=== PATIENT | male | born 1975 | race Asian ===

== ENCOUNTER 2023-05-19 13:41 | Emergency (ER) | payer SELFPAY ==
[2023-05-19] MEDS ORDERED: Iopamidol 612 MG/ML 100 ML Bottle IVPUSH ONE (13:49)
[2023-05-19 14:01] LABS: BASOPHILS PERCENT AUTO 0.8 % (0.2-1.2); EOSINOPHILS ABSOLUTE AUTO 0.1 x10^3/uL (0.0-0.5); EOSINOPHILS PERCENT AUTO 3.8 % (0.0-4.0); HEMATOCRIT 38.9 % (40.0-52.0); HEMOGLOBIN 13.5 g/dL (14.0-18.0); LYMPHOCYTES ABSOLUTE AUTO 1.3 x10^3/uL (1.0-4.8); LYMPHOCYTES PERCENT AUTO 34.9 % (25.0-50.0); MEAN CORPUSCULAR HGB CONC 34.7 g/dL (32.0-36.0); MEAN CORPUSCULAR VOLUME 89.4 fL (78.0-93.0); MONOCYTES ABSOLUTE AUTO 0.4 x10^3/uL (0.0-0.8); NEUTROPHILS ABSOLUTE AUTO 1.8 x10^3/uL (1.8-7.7); NEUTROPHILS PERCENT AUTO 48.5 % (50.0-80.0); PLATELET COUNT,PLT 140 x10^3/uL (130-400); RED BLOOD CELL COUNT 4.35 x10^6/uL (4.5-6.0); WHITE BLOOD CELL COUNT,WBC 3.7 x10^3/uL (4.0-10.0)
[2023-05-19 14:09] VITALS: BP 113/78; PULSE 61
[2023-05-19 14:17] LABS: ALANINE AMINOTRANSFERASE,ALT 17 U/L (16-63); ALBUMIN 3.7 g/dL (3.4-5.0); ALKALINE PHOSPHATASE 68 U/L (46-116); ANION GAP 12.3 mmol/L (5-15); ASPARTATE AMNIOTRANSFERASE,AST 15 U/L (15-37); BILIRUBIN TOTAL 0.2 mg/dL (0.2-1.0); BLOOD UREA NITROGEN,BUN 9 mg/dL (7-18); C-REACTIVE PROTEIN 0.13 mg/dL (<=0.30); CARBON DIOXIDE,CO2 32 mmol/L (21-32); CHLORIDE,CL 101 mmol/L (98-107); CREATININE 0.9 mg/dL (0.70-1.30); ESTIMATED GFR 106 mL/min (>=60); GLUCOSE RANDOM 94 mg/dL (70-99); POTASSIUM,K 4.3 mmol/L (3.5-5.1); PROTEIN TOTAL,TP 7.4 g/dL (6.4-8.2); SODIUM,NA 141 mmol/L (136-145)
[2023-05-19] MEDS ORDERED: Acetaminophen 325 MG Tab PO ONE (15:00)
== END 2023-05-19 15:28 | disposition home or self-care (01) ==
LOC: VM.ED 13:41
DX: K40.90 Unilateral inguinal hernia, without obstruction or gangrene, not specified as recurrent (principal)
CPT/HCPCS: 74177; 80053; 85025; 86140; 99284; A9270-GY; Q9967